=== PATIENT | female | born 1995 | race Caucasian/White ===

== ENCOUNTER → 2016-08-23 12:22 | Outpatient (CLI) | payer OTHER ==
[2012-06-12 06:10] VITALS: BMI 26.4
== END | disposition home or self-care (01) ==
LOC: D.LDO 12:22
DX: O24.419 Gestational diabetes mellitus in pregnancy, unspecified control (principal); Z3A.34 34 weeks gestation of pregnancy

== ENCOUNTER → 2016-08-27 11:40 | Outpatient (CLI) | payer OTHER ==
[2012-06-12 06:10] VITALS: BMI 26.4
== END | disposition home or self-care (01) ==
LOC: D.LDO 11:40
DX: O24.419 Gestational diabetes mellitus in pregnancy, unspecified control (principal); Z3A.35 35 weeks gestation of pregnancy

== ENCOUNTER → 2016-08-30 12:45 | Outpatient (CLI) | payer OTHER ==
[2012-06-12 06:10] VITALS: BMI 26.4
== END | disposition home or self-care (01) ==
LOC: D.LDO 12:45
DX: O24.419 Gestational diabetes mellitus in pregnancy, unspecified control (principal)

== ENCOUNTER → 2016-09-06 10:37 | Outpatient (CLI) | payer OTHER ==
[2012-06-12 06:10] VITALS: BMI 26.4
== END | disposition home or self-care (01) ==
LOC: D.LDO 10:37
DX: O13.3 Gestational [pregnancy-induced] hypertension without significant proteinuria, third trimester (principal); Z3A.36 36 weeks gestation of pregnancy

== ENCOUNTER → 2016-09-10 16:05 | Outpatient (CLI) | payer OTHER ==
[2012-06-12 06:10] VITALS: BMI 26.4
== END | disposition home or self-care (01) ==
LOC: D.LDO 16:05
DX: O24.419 Gestational diabetes mellitus in pregnancy, unspecified control (principal); Z3A.37 37 weeks gestation of pregnancy

== ENCOUNTER → 2016-09-12 15:32 | Outpatient (CLI) | payer OTHER ==
[2012-06-12 06:10] VITALS: BMI 26.4
[~2016-09-12 15:32] MED LIST: PRENATAL COMPLE1 TAB PO
[2016-09-12 16:13] LABS: APPEARANCE CLEAR (CLEAR); COLOR DK YELLOW (YELLOW); GLUCOSE NEGATIVE (NEGATIVE); LEUKOCYTE ESTERASE NEGATIVE (NEGATIVE); NITRITE NEGATIVE (NEGATIVE); PROTEIN NEGATIVE (NEGATIVE)
[2016-09-12 16:14] LABS: BILIRUBIN NEGATIVE (NEGATIVE); KETONE LARGE mg/dL (NEGATIVE); UROBILINOGEN NORMAL (NORMAL)
== END | disposition home or self-care (01) ==
LOC: D.LDO 15:32
PROVIDERS: Obstetrics & Gynecology
DX: Z34.03 Encounter for supervision of normal first pregnancy, third trimester (principal); Z3A.37 37 weeks gestation of pregnancy; M54.5 Low back pain

== ENCOUNTER → 2016-09-13 11:02 | Outpatient (CLI) | payer OTHER ==
[2012-06-12 06:10] VITALS: BMI 26.4
== END | disposition home or self-care (01) ==
LOC: D.LDO 11:02
DX: O24.419 Gestational diabetes mellitus in pregnancy, unspecified control (principal); Z3A.37 37 weeks gestation of pregnancy

== ENCOUNTER → 2016-09-17 14:30 | Outpatient (CLI) | payer OTHER ==
[2012-06-12 06:10] VITALS: BMI 26.4
== END | disposition home or self-care (01) ==
LOC: D.LDO 14:30
DX: O24.419 Gestational diabetes mellitus in pregnancy, unspecified control (principal); Z3A.38 38 weeks gestation of pregnancy

== ENCOUNTER → 2016-09-20 10:49 | Outpatient (CLI) | payer OTHER ==
[2012-06-12 06:10] VITALS: BMI 26.4
[2016-09-21 23:11] VITALS: BMI 38.7
== END | disposition home or self-care (01) ==
LOC: D.LDO 10:49
DX: O24.419 Gestational diabetes mellitus in pregnancy, unspecified control (principal)

== ENCOUNTER → 2016-09-21 17:54 | Outpatient (CLI) | payer OTHER ==
[2012-06-12 06:10] VITALS: BMI 26.4
[2016-09-21 19:02] LABS: APPEARANCE HAZY (CLEAR); BILIRUBIN NEGATIVE (NEGATIVE); COLOR YELLOW (YELLOW); GLUCOSE NEGATIVE (NEGATIVE); KETONE NEGATIVE (NEGATIVE); LEUKOCYTE ESTERASE TRACE (NEGATIVE); NITRITE NEGATIVE (NEGATIVE); PH 5.5 (5.0-6.0); PROTEIN NEGATIVE (NEGATIVE); SPECIFIC GRAVITY 1.015 (1.005-1.020); UROBILINOGEN NORMAL (NORMAL)
[2016-09-21 19:12] LABS: WHITE CELLS - URINE OCC /hpf (0-5)
[2016-09-21 23:11] VITALS: BMI 38.7
== END | disposition home or self-care (01) ==
LOC: D.LDO 17:54
PROVIDERS: Obstetrics & Gynecology
DX: Z34.03 Encounter for supervision of normal first pregnancy, third trimester (principal); Z3A.38 38 weeks gestation of pregnancy; M54.9 Dorsalgia, unspecified

== ENCOUNTER 2016-09-21 22:29 | Inpatient (IN) | payer OTHER ==
[~2016-09-21] VITALS: Ht 152.4 cm; Wt 89.8 kg
[2016-09-21 23:08] LABS: HEMATOCRIT 32.8 % (36.0-48.0); HEMOGLOBIN 11.1 g/dL (12-16); MCH 28.2 pg (26.0-34.0); MCHC 33.8 g/dL (31.0-37.0); MCV 83.2 fL (80.0-100.0); MEAN PLATELET VOLUME 12.4 fL (7.4-10.4); RBC 3.94 10x6/uL (4.00-5.40); RDW 13.3 % (11.5-14.5); WBC 12.8 10x3/uL (4.8-10.8)
[2016-09-21 23:11] VITALS: BP 137/88; Ht 152.4 cm; Wt 89.8 kg
[2016-09-22] VITALS (15 sets, daily range): BP systolic 108–142; BP diastolic 68–89
--- NOTE | 2016-09-22 14:56 | NUR ---
NOTE. SITTING UP IN BED . ALEKSEY JOHNSON, ICE PACK IN PLACE. Dante MADERA RN IN ROOM ASSISTING PATIENT. WILL TRANSFER TO CLEAN ROOM WHEN PT IS READY.
--- NOTE | 2016-09-22 15:40 | NUR ---
COMPLETED. DESIRES TO SHOWER BEFORE MOVING TO CLEAN ROOM. TO NURSERY. ASSISTED TO SITTING POSITION. BUFFY WELL. EPIDURAL CATHETER REMOVED WITH BLACK TIP INTACT. PT WAS SHOWN TIP. ASSISTED UP TO BATHROOM TO VOID AND SHOWER. C/O FEELING LIGHT HEADED JUST PRIOR TO GETTING TO TOILET. ASSISTED TO SITTING POSITION ON TOILET AND LOWERED HEAD. STATES "I FEEL RINGING IN MY EARS. I FEEL LIKE I'M GOING TO PASS OUT. USED AMNIO INHALANT WITH IMMEDIATE RELIEF STATES "I DON'T HEAR ANYMORE RINGING". VOIDED 200 ML URINE. RUBRA SMALL. INSTRUCTED ON NEGIN-CARE WITH BETADINE AND WARM WATER. CLEAN PERIPADS X 2 ON. SHOWER DEFERRED AT THIS TIME. ASSISTED TO WHEELCHAIR AND TRANSPORTED TO ROOM 1273 AND ASSISTED TO BED. SLIGHT DIZZINESS WHEN STANDING. SIDE RAILS UP. CALL LIGHT IN REACH. INSTRUCTED NOT TO GET OUT OF BED WITHOUT ASSISTANCE.
--- NOTE | 2016-09-22 16:24 | NUR ---
CONTACTED DR PINON AND NOTIFIED OF PATIENT EPISODE OF SYNCOPE. NEW ORDERS RECEIVED.
--- NOTE | 2016-09-22 16:42 | NUR ---
2/U DEVIATED TO RIGHT. ASSISTED TO SITTING POSITION AT SIDE OF BED, STOOD WITH ASSISTANCE, TOOK THREE STEPS AND FELT DIZZY. RETURNED TO BED AND PLACED ON BEDPAN TO VOID. NS 100 ML PLACED ON ALARIS PUMP AT 999 ML/HR FOR FLUID BOLUS PER MD ORDER. SALINE LOCK PATENT WITHOUT EDEMA OR ERRYTHEMA AT SITE. VOIDED 300 CC URINE. PERICARE WITH WARM WATER AND BETADINE. EDEMA OF LABIA NOTED, FRESH ICE PACK PLACED ALONG WITH TWO PERIPADS. ALEKSEY JOHNSON. ASSISTED TO SITTING POSITION. SIDE RAILS UP X 2, CALL LIGHT IN REACH, FAMILY IN ROOM WITH INFANT.
--- NOTE | 2016-09-22 17:40 | NUR ---
NS IV COMPLETE. SALINE LOCK FLUSHED. 2/U FIRM. PLACED ON BEDPAN. VOIDED 500 ML URINE. RUBRA SMALL. TUCKS, EPIFOAM APPLIED TO PERINEAL AREA, EDEMA AND HEMORRHOID NOTED. ICE PACK PLACED ON PERINEUM. 2/10 ON PAIN SCALE. DESIRES TO REST. SIDE RAILS UP X 2, CALL LIGHT IN REACH. INFANT IN CRIB. FOB IN ROOM.
--- NOTE | 2016-09-22 17:41 | NUR ---
U/1 FIRM MIDLINE AFTER VOIDING.
--- NOTE | 2016-09-22 18:35 | NUR ---
SLEEPING ON BACK, RESPIRATIONS EVEN. FOB SLEEPING ON COUCH. IN NURSERY FOR PEDIATRIC EVALUATION.
--- NOTE | 2016-09-22 19:24 | NUR ---
RN TO PT BS FOR GENEVIEVE. PT RESTING IN BED IN SEMI-FOWLERS POSITION IN NO ACUTE DISTRESS. PT IS A 21YO G1 NOW P1 WITH OF VIABLE MALE INFANT TODAY @ 1217 WITH ASSISTANCE OF 2ND DEGREE ML EPIS AND REPAIR. @ 38.6 WKS GESTATION. AAOX3. HR REGULAR. PT MILDLY TACHYCARDIC, PULSE 118, PT WITH TACHYCARDIA ON ADMISSION. ABDOMEN SOFT AND NON TENDER. BS ACTIVE TIMES 4. FUNDUS FIRM AND ML @ U, LOCHIA RUBRA SMALL. PERINIUM APPEARS TO BE INTACT, MODERATE PERINIAL SWELLING NOTED. ICE PACK IN PLACE, REMOVED AT THIS TIME. NEGIN PAD CHANGED AND NEGIN CARE PROVIDED. PT DENIES DIFFICULTY VOIDING, STATES SHE HAS NOT PASSED GAS SINCE OR HAD A BM. 1+ GENERALIZED EDEMA NOTED. 18G SL IN LEFT FA, FLUSED AT THIS TIME WITH 5CC NS WITHOUT DIFFICULTY, NO REDNESS, EDEMA, OR DRAINAGE NOTED TO SITE. PT APPEARS PALE, S/P EBL 500ML AND CYTOTEC PLACMENT AFTER DELIVERY OF 800MCG. 1999 CBC ORDERED FOR EVALUATION. PER AM SHIFT REPORT PT SYMPTOMATIC WHEN AMBULATING. PT DENIES ANY NEEDS AT THIS TIME. BED IN LOW POSITION, SIDE RAILS UP TIMES 2, CALL LIGHT AND PHONE IN REACH. SO REMAINS AT PT BS FOR SUPPORT AND ASSISTANCE. NURSERY RN AT PT BS TO ASSIST PT WITH EFFORT. WILL CONT TO MONITOR MATERNAL AND STATUS.
--- NOTE | 2016-09-22 19:33 | NUR ---
CLINICAL LAB AT PT BS TO DRAW SCHEDULED 2000 CBC.
[2016-09-22 19:47] LABS: BASOPHILS 0.1 % (0-2); EOSINOPHILS 0 % (0-7); HEMATOCRIT 25.3 % (36.0-48.0); HEMOGLOBIN 8.4 g/dL (12-16); IMMATURE GRANULOCYTES 0.4 % (0-5); MCH 27.8 pg (26.0-34.0); MCHC 33.2 g/dL (31.0-37.0); MCV 83.8 fL (80.0-100.0); MEAN PLATELET VOLUME 11.3 fL (7.4-10.4); MONOCYTES 8.1 % (2-11); NEUTROPHILS 79.4 % (40-80); PLATELET COUNT 201 10x3/uL (130-400); RBC 3.02 10x6/uL (4.00-5.40); RDW 13.5 % (11.5-14.5); WBC 16.4 10x3/uL (4.8-10.8)
--- NOTE | 2016-09-22 20:13 | NUR ---
RN CALLED TO PT BS. PT ASSISTED TO BR. PT REQUIRED MODERATE ASSISTANCE. PT C/O LIGHT HEADEDNESS AND DIZZINESS. PT ABLE TO VOID 200ML. NEGIN CARE PERFORMED. NEGIN PAD AND PANTIES PLACED. PT RETURNED TO BE WITH MODERATE ASSISTANCE. 1999 CBC SHOWS DRASTIC DROP IN H&H. DR. PINON CALLED AND NOTIFIED OF CBC RESULTS AND PT SYMPTOMS. PER MD, TRANSFUSE PT WITH 2 UNITS PRBC'S NOW. ORDER PLACED AND NOTED.
--- NOTE | 2016-09-22 20:17 | NUR ---
CLINICAL LAB CALLED AND NOTIFIED OF NEED TO TRANSFUSE 2 UNITS PRBC'S
--- NOTE | 2016-09-22 20:25 | NUR ---
RN TO PT BS TO DISCUSS TRANSFUSING 2 UNITS PRBC'S. POC DISCUSSED AND QUESTIONS ANSWERED. PT C/O PAIN, RATES 08/10, 1 TAB IBUPORFEN PROVIDED TO PT AT THIS TIME WITH 2100 DOSE OF MOM. PT DENIES ANY FURTHER NEEDS AT THIS TIME. BED IN LOW POSITION, SIDE RAILS UP TIMES 2, CALL LIGHT AND PHONE IN REACH. SO REMAINS AT PT BS FOR SUPPORT AND ASSISTANCE. INFANT REMAINS AT PT BS FOR COUPLET CARE. WILL CONT TO MONITOR PT STATUS.
--- NOTE | 2016-09-22 20:47 | NUR ---
RN TO PT BS WITH APRIL SAWANT RN TO TRANSFER #1 UNIT PRBC'S. ID VERIFIED, BLOOD BAND VERIFIED, AND UNIT VERIFIED, BY RN'S TIMES 2. POC DISCUSSED WITH PT AND SO. QUESTIONS ANSWERED. SO REMAINS AT PT BS FOR SUPPORT AND ASSISTANCE, REMAINS AT PT BS FOR COUPLET CARE. BED IN LOW POSITION, SIDE RAILS UP TIMES 2, CALL LIGHT AND PHONE IN REACH. WILL CONT TO MONITOR PT STATUS.
--- NOTE | 2016-09-22 23:30 | NUR ---
#1 UNIT PRBC'S INFUSION COMPLETE. NS SET TO INFUSE VIA PUMP AT 125 CC/HR TO CLEAR IV TUBING.
--- NOTE | 2016-09-22 23:38 | NUR ---
RN AT PT BS WITH Ethan SAWANT RN TO VERIFY #2 UNIT OF PRBC'S AND PT ID. VERIFIED WITH RN AND PT.
--- NOTE | 2016-09-22 23:44 | NUR ---
PT UP TO BR WITH MINIMAL ASSISTANCE. PT STATES SHE IS NOT SYMPTOMATIC THIS TIME WITH AMBULATION. PT ABLE TO VOID AND PROVIDE NEGIN CARE TO PT.
[2016-09-23] VITALS (12 sets, daily range): BP systolic 115–136; BP diastolic 71–88
--- NOTE | 2016-09-23 01:47 | NUR ---
RN TO PT BS. #2 UNIT OF PRBC'S CONT TO INFUSE VIA PUMP AT 125CC/HR. PT SHOWING NO SIGNS OR SYMPTOMS OF REACTION. PT RESTING IN BED IN SEMI-FOWLERS POSITION IN NO ACUTE DISTRESS. BED IN LOW POSITION, SIDE RAILS UP TIMES 2, CALL LIGHT AND PHONE IN REACH. SO REMAINS AT PT BS FOR SUPPORT AND ASSISTANCE. WILL CONT TO MONITOR PT STATUS.
--- NOTE | 2016-09-23 02:22 | NUR ---
#2 UNIT PRBC'S INFUSION COMPLETE. NS SET TO INFUSE VIA PUMP AT 125CC/HR TO CLEAR IV TUBING. VS STABLE. WILL CONT TO MONITOR PT STATUS.
--- NOTE | 2016-09-23 02:45 | NUR ---
BLOOD TUBING CLEAR. IV SALINE LOCKED. FLUSHED WITH 5CC NS WITHOUT DIFFICULTY. PT AMBULATING WITHOUT ASSISTANCE TO BR. PT DENIES ANY FURTHER NEEDS AT THIS TIME. WILL CONT TO MONITOR PT STATUS.
--- NOTE | 2016-09-23 03:20 | NUR ---
RN TO PT BS. 1 HOUR POST TRANSFUSION VS TAKEN, WNL. PT DENIES ANY NEEDS AT THIS TIME. BED IN LOW POSITION, SIDE RAILS UP TIMES 2, CALL LIGHT AND PHONE IN REACH. WILL CONT TO MONITOR PT STATUS. SO REMAINS AT PT BS FOR SUPPORT AND ASSISTANCE.
--- NOTE | 2016-09-23 05:55 | NUR ---
RN TO PT BS FOR ROUNDS. PT AMBULATING IN ROOM TO BR. PT AMBULATING WITH NO ASSISTANCE WITHOUT DIFFICULTY. PT DENIES ANY NEEDS AT THIS TIME. BED IN LOW POSITION, SIDE RAILS UP TIMES 2, CALL LIGHT AND PHONE IN REACH. SO REMAINS AT PT BS FOR SUPPORT AND ASSISTANCE. WILL CONT TO MONITOR PT STATUS AND GIVE REPORT TO AM SHIFT.
[2016-09-23 06:54] LABS: HEMATOCRIT 29.5 % (36.0-48.0); HEMOGLOBIN 9.9 g/dL (12-16); MCHC 33.6 g/dL (31.0-37.0); MCV 83.6 fL (80.0-100.0); MEAN PLATELET VOLUME 11.1 fL (7.4-10.4); RBC 3.53 10x6/uL (4.00-5.40); RDW 13.9 % (11.5-14.5); WBC 14.7 10x3/uL (4.8-10.8)
--- NOTE | 2016-09-23 09:00 | NUR ---
ASSESSMENT DONE- VS DONE. PT SITTING UP IN BED HOLDING . IV SALINE LOCK REMOVED- PT STATES THAT IS "SORE" AND NOTED SLIGHT REDNESS ABOVE CATH INSERTION SITE- CATH TIP INTACT- PRESSURE HELD AND BANDAIDE APPLIED. NOTED SMALL LOCHIA ON PAD. DENIES WANTING ANY PAIN MEDICATION.
--- NOTE | 2016-09-23 10:00 | NUR ---
MARISOL HAINES IN ROOM WITH PT AND SIGN OTHER INSTRUCTING ON BREAST FEEDING.
--- NOTE | 2016-09-23 10:45 | NUR ---
UP TO SHOWER. PT CO PAIN AT HEMORRHOIDS- PROCTCREAM GIVEN WITH INST PER Ethan FITZGERALD RN
--- NOTE | 2016-09-23 11:27 | NUR ---
Blanca Singleton 09/23/16 LE @ 8:55 S: Patient states is going ok. She hasn't fed as much because her nipples are sore. States now one showed her how to do nipple shield, she has just been placing it on her nipple, and it's hard to keep it on. O: Patient lying sideways in bed, infant in crib, FOB sitting on sofa eating breakfast. Asked patient to show me how she has been applying nipple shield, patient is using incorrect. Showed patient and FOB how to correctly apply nipple shield, watched as both parents took turns applying nipple shield, both are aware how to correctly apply. Patient has flat nipples and both appear to be extremely sore, dark red in color of areola, possible due to incorrect use of nipple shield. Patient states she doesn't think baby has been getting anything out when she has been using her shield, baby just sucks hard. Showed patient how to hand express, you may hand express if latching hurts to bad. Infant initial latch is always more aggressive, try latching of the side that is less sore. When feeding infant make sure nipple shield is applied correctly, turn baby tummy to tummy, nose opposite of nipples, gently support infant head, and allow infant to self-latch. Help latched infant in laid back position, patient appears to be uncomfortable due to sore nipples. Infant mouth was 140 degrees, mouth round, and sucking in a rocking motion. You may apply lanolin to your nipples follow every feeding, it doesn't have to be removed, and this will help your nipples to heal. Nursery nurse came in to get for doctor assessment. Sore nipples do deal with time. Make sure nipple shield is applied correctly, infant is in the correct position, apply lanolin or express your breast milk and apply to your nipples, allow to air dry and much as possible. Patient asked about pumping, you may pump every 2-3 hours in the day and 3-4 hours and night for at least 15 minutes, if it hurts too bad to latch infant. Stimulation will help your body know, to make milk. It's common not to get out a lot when pumping, that is normal, pumping isn't an indication on how much your body is making when the baby is latched, it just shows how much you make if you pump, don't let pumping discourage you. You can also hand express and provide milk to infant, both ways are beneficial. Just give it time and patience is needed. Asked if any other questions or concerns patient declined. States the nurse is going to help her take a shower. Will follow up. A: Patient nipples are sore. P: Verify nipple shield is apply correctly when latching , if unable to latch due to sore nipples, pump every 2-3 hours during the day and 3-4 hours at night for 15 minutes.
--- NOTE | 2016-09-23 14:50 | NUR ---
Pt awake with infant in crib at bedside, she is visiting with family and friends, denies pain at this time, no needs voiced.
--- NOTE | 2016-09-23 16:45 | NUR ---
Called to room, provided with infant blankets per request. Assisted with swaddling infant. Pt denies any needs at this time. Family at bedside.
--- NOTE | 2016-09-23 18:56 | NUR ---
SITTING UP IN BED TALKING WITH VISITORS. REQUESTING MOTRIN WHEN AVAILABLE.
--- NOTE | 2016-09-23 19:20 | NUR ---
ASSESSMENT PER FLOW SHEET, VS OBTAINED, FF, ML, U/2, PT REPORTS LITE BLEEDING WITH NO CLOTS, REPORTS FLATUS, BM TODAY AND VOIDING BY SELF WITH NO DIFFICULTY, PT INST ON AND VERBALIZES UNDERSTANDING OF NEGIN CARE, PT C/O HEMORRHOID PAIN, REQUEST MOTRIN, INFORMED PT THAT I WILL ADM IT, DINNER TRAY REMOVED
--- NOTE | 2016-09-23 19:30 | NUR ---
ADM MOTRIN PO PER MD ORDERS, SEE EMAR, PT DENIES FURTHER NEEDS, BABY AND FAMILY AT BEDSIDE
--- NOTE | 2016-09-23 20:28 | NUR ---
PT RESTING ON LEFT SIDE HOLDING BABY, RATES PAIN 2/10, DENIES NEEDS AT THIS TIME
--- NOTE | 2016-09-23 21:35 | NUR ---
PT UNABLE TO BREASTFEED, REQUESTED BREAST PUMP, APRIL SAWANT, RN TO ROOM FOR ASSISTANCE, PT DENIES FURTHER NEEDS, FOB HOLDING BABY AT THIS TIME
--- NOTE | 2016-09-23 22:25 | NUR ---
PT LOVINGLY HOLDING BABY, REQUESTED AND PROVIDED EXTRA PILLOW, PT DENIES FURTHER NEEDS OR PAIN AT THIS TIME, FOB ASLEEP ON COUCH
--- NOTE | 2016-09-24 00:08 | NUR ---
PT SITTING UP IN BED HOLDING BABY, PT IS READY TO SLEEP, BABY TO NSY VIA OPEN CRIB CART PER THIS RN, PT DENIES FURTHER NEEDS OR PAIN AT THIS TIME, FOB ASLEEP ON COUCH
--- NOTE | 2016-09-24 02:31 | NUR ---
PT RESTING WITH EYES CLOSED, RESP QUIET, NO DISTRESS NOTED, LEFT UNDISTURBED AT THIS TIME, FOB ASLEEP ON COUCH
--- NOTE | 2016-09-24 04:30 | NUR ---
PT AWAKE, BABY TO ROOM VIA OPEN CRIB CART PER THIS RN, PT REQUESTED AND SERVED ICE CHIPS, PT DENIES FURTHER NEEDS OR PAIN AT THIS TIME, FOB AT BEDSIDE
[2016-09-24 06:12] LABS: RAPID PLASMA REAGIN Non Reactive (Non Reactive)
--- NOTE | 2016-09-24 06:40 | NUR ---
SHIFT REPORT TO DAY SHIFT
--- NOTE | 2016-09-24 07:13 | NUR ---
DR PINON ON UNIT. TO PT ROOM.
--- NOTE | 2016-09-24 07:22 | NUR ---
BREAKFAST TRAT SERVED.
--- NOTE | 2016-09-24 07:30 | NUR ---
THIS RN TO BEDSIDE. PT UP AMBULATING IN HALLS. PAIN AND NEEDS ASSESSED. PT DENIES PAIN AND/OR NEEDS AT PRESENT. PT INFORMED THIS RN WILL RETURN TO ROOM FOR SHIFT ASSESSMENT AFTER PT HAS HAD TIME TO EAT HER BREAKFAST.
[2016-09-24 08:15] VITALS: BP 132/85
--- NOTE | 2016-09-24 08:15 | NUR ---
SHIFT ASSESSMENT COMPLETED. SEE FLOWSHEET. TDAP INFO PROVIDED. PT DENIES NEEDS OR PAIN AT PRESENT.
--- NOTE | 2016-09-24 09:00 | NUR ---
ROUNDS MADE. PT SITTING UP IN BED VISITING W/GUESTS AT BEDSIDE. DENIES PAIN OR NEEDS AT PRESENT.
--- NOTE | 2016-09-24 09:44 | NUR ---
TO BEDSIDE TO SEE IF PT DESIRES TO RECEIVE TDAP. PT DOES WISH TO RECEIVE IT. FAMILY AT BEDSIDE. PT DENIES PAIN OR NEEDS AT THIS TIME.
--- NOTE | 2016-09-24 09:57 | NUR ---
PT ADOLESCENT SPECIALIST LIGHT. REQUESTS IBUPROFEN FOR PAIN TO RECTUM OF "1" ON 0-10 PAIN SCALE. IBUPROFEN 600 MG GIVEN PO ORDERED.
--- NOTE | 2016-09-24 10:02 | NUR ---
DR POWERS TO PT'S ROOM.
--- NOTE | 2016-09-24 10:45 | NUR ---
THIS RN TO BEDSIDE FOR DISCHARGE TEACHING. INSTRUCTIONS GIVEN FOR PP VAG DELIVERY W/EPIS, PP DEPRESSION, PAIN MEDICATION ADMIN. PP 4WK FOLLOW APPT GIVEN W/REMINDER CARD, PRESCRIPTION FOR MOTRIN PROVIDED. COMMUNITY RESOURCES GIVEN. EXTRA PERIPAD, PANTIES,CLEAN NEGIN BOTTLE W/NEW BOTTLE BETADINE AND [facility] MUG GIVEN. PT DENIES ADDITIONAL QUESTIONS AT THIS TIME. REQUEST TDAP TO BE GIVEN. PT'S PARENTS PRESENT FOR DISCHARGE TEACHING. PT DENIES PAIN OR NEEDS AT THIS TIME.
--- NOTE | 2016-09-24 11:18 | NUR ---
TDAP GIVEN IN LEFT DELTOID. PT TOLERATED WELL. PT DENIES PAIN OR NEEDS AT PRESENT. PT AWAITING DISCHARGE FOR INFANT.
--- NOTE | 2016-09-24 12:00 | NUR ---
ROUNDS MADE. NBN NURSE CURRENTLY IN ROOM GIVEN INFANT DISCHARGE INSTRUCTIONS. PT DENIES NEEDS OR PAIN AT PRESENT.
--- NOTE | 2016-09-24 13:10 | NUR ---
PT DISCHARGED HOME. PT AND TRANPORTED VIA W/C TO AWAITNG VEHICLE TO BE DRIVEN HOME BY PT'S SIG OTHER.
== END 2016-09-24 13:10 | disposition home or self-care (01) | DRG 775 ==
LOC: D.LDO 22:29 → D.LD 22:38
PROVIDERS: ADMIT Obstetrics & Gynecology
PROC: 0W8NXZZ Division of Female Perineum, External Approach (ICD-10-PCS; principal; 2016-09-22)
PROC: 10E0XZZ Delivery of Products of Conception, External Approach (ICD-10-PCS; principal; 2016-09-22)
DX: O24.429 Gestational diabetes mellitus in childbirth, unspecified control (principal); O99.824 Streptococcus B carrier state complicating childbirth; Z3A.38 38 weeks gestation of pregnancy; Z37.0 Single live birth

== ENCOUNTER 2020-06-23 10:14 | Emergency (ER) | payer MEDICAID ==
[~2020-06-23] VITALS: Ht 152.4 cm; Wt 86.4 kg
[2020-06-23 10:36] VITALS: BP 125/85; Ht 152.4 cm; Wt 86.4 kg
[2020-06-23 12:00] LABS: BILIRUBIN NEGATIVE (NEGATIVE); KETONE LARGE mg/dL (NEGATIVE); NITRITE POSITIVE (NEGATIVE); UROBILINOGEN NORMAL mg/dL (< 2)
[2020-06-23 12:01] LABS: BACTERIA MANY HPF (NONE SEEN); SQUAMOUS EPITHELIAL 0-5 HPF (0-4)
[2020-06-23] MEDS ORDERED: MACROBID100 MG PO (12:13)
== END 2020-06-23 12:33 | disposition home or self-care (01) ==
LOC: D.ER 10:14
PROVIDERS: Emergency Medicine
DX: O23.42 Unspecified infection of urinary tract in pregnancy, second trimester (principal); Z3A.22 22 weeks gestation of pregnancy; O24.912 Unspecified diabetes mellitus in pregnancy, second trimester